=== PATIENT | male | born 1990 | race Caucasian/White ===

== ENCOUNTER 2018-09-08 01:11 | Emergency (ER) | payer OTHER ==
[2018-09-08] MEDS ORDERED: Bacitracin Oint 1 GM U/D Packet TOP ONE (01:55)
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
== END 2018-09-08 02:05 | disposition home or self-care (01) ==
LOC: MW.ED 01:11
DX: S50.322A Blister (nonthermal) of left elbow, initial encounter (principal); I10 Essential (primary) hypertension; E66.9 Obesity, unspecified; Z91.041 Radiographic dye allergy status
CPT/HCPCS: 99282